=== PATIENT | female | born 1955 | race Caucasian/White ===

== ENCOUNTER 2019-10-10 19:50 | Emergency (ER) | payer BC ==
[2019-10-10] MEDS ORDERED: ceFAZolin 1,000 MG VIAL (IM USE) IM STA (20:17)
[2019-10-10] MEDS ORDERED: IBUPROFEN 600 MG TAB PO STA (20:17)
[2019-10-10] MEDS ORDERED: CIPROFLOXACIN HCL 500 MG TAB PO STA (20:17)
[2019-10-10] MEDS ORDERED: DIPH,PERTUS(ACELL)TETVAC-LF 0.5 ML VIAL IM ONE (20:17)
[2019-10-10] MEDS ORDERED: LIDOCAINE 1% INJ 10MG/ML (20 ML MDV) SQ STA (20:18)
--- NOTE | 2019-10-10 21:17 | XR ---
EXAMINATION TYPE: XR toes RT DATE OF EXAM: 10/10/2019 COMPARISON: None HISTORY: Open laceration TECHNIQUE: 3 view toes right foot FINDINGS: No acute osseous abnormality is evident. Joint spaces appear preserved. There is prior buni onectomy and osteotomy of the first metatarsal. No radiopaque foreign bodies are evident. IMPRESSION: 1. No acute abnormality third digit.
[2019-10-10 21:29] VITALS: PULSE 55; RESP 16
--- NOTE | 2019-10-10 21:33 | ED ---
General Adult HPI - General Chief complaint: Extremity Injury, Lower Stated complaint: R Foot injury Time Seen by Provider: 10/10/19 20:08 Source: patient, family, RN notes reviewed, old records reviewed Mode of arrival: wheelchair Limitations: no limitations - History of Present Illness Initial comments: 63-year-old female patient presents to ED for evaluation of injury to third toe on the right foot. Patient was reportedly walking barefoot in the yard when she stepped on a melani stake causing a laceration. There is reportedly a few bone fragments found by the son-in-law. Patient did not fall to ground. Is denying any other acute injury. Systemic: Pt denies fatigue, fever/chills, rash. Pt denies weakness, night sweats, weight loss. Neuro: Pt denies headache, visual disturbances, syncope or pre-syncope. HEENT: Pt denies ocular discharge or irritation, otalgia, rhinorrhea, pharyngitis or notable lymphadenopathy. Cardiopulmonary: Pt denies chest pain, SOB, heart palpitations, dyspnea on exertion. Abdominal/GI: Pt denies abdominal pain, n/v/d. : Pt denies dysuria, burning w/ urination, frequency/urgency. Denies new onset urinary or bowel incontinence. MSK: Pt denies myalgia, loss of strength or function in extremities. Neuro: Pt denies new onset weakness, paresthesias. - Related Data Home Medications Medication Instructions Recorded Confirmed Thyroid,Pork [Nature-Throid] 48.75 mg PO DAILY 10/10/19 10/10/19 valACYclovir [Valtrex] 500 mg PO BID PRN 10/10/19 10/10/19 Previous Rx's Medication Instructions Recorded Ciprofloxacin HCl [Cipro] 500 mg PO Q12H 7 Days #14 tab 10/10/19 Allergies Allergy/AdvReac Type Severity Reaction Status Date / Time Penicillins Allergy Rash/Hives Verified 10/10/19 21:45 sulfamethoxazole Allergy Rash/Hives Verified 10/10/19 21:45 [From Bactrim] trimethoprim [From Bactrim] Allergy Rash/Hives Verified 10/10/19 21:45 codeine AdvReac Nausea & Verified 10/10/19 21:45 Vomiting Review of Systems ROS Statement: Those systems with pertinent positive or pertinent negative responses have been documented in the HPI. ROS Other: All systems not noted in ROS Statement are negative. Past Medical History Past Medical History: Hypertension History of Any Multi-Drug Resistant Organisms: None Reported Past Surgical History: Bariatric Surgery, Section, Orthopedic Surgery Past Psychological History: No Psychological Hx Reported Smoking Status: Never smoker Past Alcohol Use History: None Reported Past Drug Use History: None Reported General Exam - General Exam Comments Initial Comments: Constitutional: NAD, AOX3, Pt has pleasant affect. HEENT: NC/AT, trachea midline, neck supple, no lymphadenopathy. External ears appear normal, without discharge. Mucous membranes moist. There is no scleral icterus. No pallor noted. Cardiopulmonary: RRR, no murmurs, rubs or gallops, no JVD noted. Lungs CTAB in anterior and posterior enamorado. No peripheral edema. Abdominal exam: Abdomen soft and non-distended. Abdomen non-tender to palpation in all 4 quadrants. Bowel sounds active in LLQ. No hepatosplenomegaly. No ecchymosis Neuro: CN II-XII grossly intact. No nuchal rigidity. No raccon eyes, no kurtz sign, no hemotympanum. No cervical spinal tenderness. MSK: 1.5 cm laceration there and some bone fragments noted. I'm not seeing any exposed tendon. Flexion and extension is intact. Sensation is intact. Capillary refill than 2 seconds. Loosely approximated 2 simple interrupted sutures. Sensation intact in upper and lower extremities. Full active ROM in upper and lower extremities, 5/5 stregnth. Limitations: no limitations Course Vital Signs 10/10/19 10/10/19 10/10/19 19:52 21:15 22:20 Temperature 98.2 F 97.7 F 97.5 F L Pulse Rate 65 55 L 55 L Respiratory 20 16 16 Rate Blood Pressure 149/80 135/75 136/78 O2 Sat by Pulse 97 96 96 Oximetry Procedures - Laceration Laceration #1 Consent Obtained: verbal consent Indication: laceration Site: foot (right toe ) Size (cm): 1 (1.5) Description: linear Depth: simple, single layer (bone involvement) Anesthetic Used: lidocaine 1% Anesthesia Technique: local infiltration Amount (mls): 3 Pre-repair: wound explored, irrigated extensively Type of Sutures: nylon Size of Sutures: 5-0 Number of Sutures: 2 Technique: simple, interrupted Patient Tolerated Procedure: well, no complications Medical Decision Making - Medical Decision Making 63-year-old female patient presents to ED for evaluation of injury to third toe on the right foot. Patient was reportedly walking barefoot in the yard when she stepped on a melani stake causing a laceration. There is reportedly a few bone fragments found by the son-in-law. Patient did not fall to ground. Is denying any other acute injury. Pt VSS, afebrile. Physical exam displayed: 1.5 similar laceration there are a few bone fragments noted. Wound was copiously irrigated. Approximated loosely with 2 simple interrupted sutures. Plain film was read as negative. I did discuss case with on-call orthopedic surgeon Dr. Mares. He recommended patient being placed in splint be nonweightbearing, ciprofloxacin and outpatient follow up tomorrow. Tetanus updated. Case discussed with Dr. Emanuel. Disposition Clinical Impression: Fracture of toe, open Disposition: HOME SELF-CARE Condition: Stable Instructions (If sedation given, give patient instructions): Toe Fracture (ED) Additional Instructions: Continue to wear splint. Follow up with primary care provider orthopedic consult tomorrow. Take antibiotics as directed. Elevate foot. Monitor for signs of infection. Return to ER if condition worsens. Prescriptions: Ciprofloxacin HCl [Cipro] 500 mg PO Q12H 7 Days #14 tab Is patient prescribed a controlled substance at d/c from ED?: No Referrals: Nonstaff,Physician [Primary Care Provider] - 1-2 days Sergey Mares MD [STAFF PHYSICIAN] - 1-2 days
[2019-10-10 22:59] VITALS: BP 136/78; TEMP 97.5
== END 2019-10-10 22:25 | disposition home or self-care (01) ==
LOC: EC 19:50
DX: S92.501A Displaced unspecified fracture of right lesser toe(s), initial encounter for closed fracture (principal); Z88.0 Allergy status to penicillin; Z88.2 Allergy status to sulfonamides; Z88.5 Allergy status to narcotic agent; W22.8XXA Striking against or struck by other objects, initial encounter; Y93.01 Activity, walking, marching and hiking; Y92.096 Garden or yard of other non-institutional residence as the place of occurrence of the external cause
CPT/HCPCS: 73660; 90715; 99284; 90471; 12001; J2001

== ENCOUNTER 2022-01-02 15:21 | Emergency (ER) | payer BC, MEDICARE ==
[2022-01-02 15:59] VITALS: BP 147/74; PULSE 66; RESP 18; TEMP 97.4
[2022-01-02] MEDS ORDERED: KETOROLAC 15 MG/ML 1 ML VIAL IM STA (16:22)
--- NOTE | 2022-01-02 16:56 | ED ---
Upper Extremity HPI - General Chief Complaint: Extremity Injury, Upper Stated Complaint: left wrist injury Time Seen by Provider: 01/02/22 16:16 Source: patient Mode of arrival: ambulatory Limitations: no limitations - History of Present Illness Initial Comments: Patient is a 66-year-old female who presents to the emergency department with a chief complaint of left wrist pain. Patient was on a stool which slipped from under her causing her to fall on her left outstretched hand. Patient reports pain in her left wrist. Denies numbness and tingling. Denies other injury. Has not taken anything for pain. - Related Data Home Medications Medication Instructions Recorded Confirmed Thyroid,Pork [Nature-Throid] 48.75 mg PO DAILY 10/10/19 10/10/19 valACYclovir HCL [Valtrex] 500 mg PO BID PRN 10/10/19 10/10/19 Previous Rx's Medication Instructions Recorded Ciprofloxacin HCl [Cipro] 500 mg PO Q12H 7 Days #14 tab 10/10/19 HYDROcodone/APAP 10-325MG [[place] 1 tab PO Q4HR PRN 3 Days #18 tab 01/02/22 10-325] Ibuprofen [Motrin] 800 mg PO Q6H PRN #30 tab 01/02/22 Allergies Allergy/AdvReac Type Severity Reaction Status Date / Time Penicillins Allergy Rash/Hives Verified 01/02/22 16:00 sulfamethoxazole Allergy Rash/Hives Verified 01/02/22 16:00 [From Bactrim] trimethoprim [From Bactrim] Allergy Rash/Hives Verified 01/02/22 16:00 codeine AdvReac Nausea & Verified 01/02/22 16:00 Vomiting Review of Systems ROS Statement: Those systems with pertinent positive or pertinent negative responses have been documented in the HPI. ROS Other: All systems not noted in ROS Statement are negative. Past Medical History Past Medical History: Hypertension History of Any Multi-Drug Resistant Organisms: None Reported Past Surgical History: Bariatric Surgery, Section, Orthopedic Surgery Past Psychological History: No Psychological Hx Reported Smoking Status: Never smoker Past Alcohol Use History: Occasional Past Drug Use History: None Reported General Exam Limitations: no limitations General appearance: alert, in no apparent distress Head exam: Present: atraumatic, normocephalic, normal inspection Respiratory exam: Present: normal lung sounds bilaterally. Absent: respiratory distress, wheezes, rales, rhonchi, stridor Cardiovascular Exam: Present: regular rate, normal rhythm, normal heart sounds. Absent: systolic murmur, diastolic murmur, rubs, gallop, clicks Extremities exam: Present: other (Deformity and swelling of the radial aspect of left wrist. Tenderness over anterior wrist, both ulnar and radial aspects. No anatomical snuffbox tenderness. Neurovascular intact. Full ROM of digits. Wrist range of motion limited due to pain.) Neurological exam: Present: alert, oriented X3, CN II-XII intact Psychiatric exam: Present: normal affect, normal mood Skin exam: Present: warm, dry, intact, normal color. Absent: rash Course Vital Signs 01/02/22 15:54 Temperature 97.4 F L Pulse Rate 66 Respiratory 18 Rate Blood Pressure 147/74 O2 Sat by Pulse 95 Oximetry Procedures - Orthopedic Fracture Reduction Fracture #1 Side: left Fracture Reduction Location: radius Analgesia: hematoma block Technique: direct manipulation Post Reduction X-rays Demonstrate: acceptable reduction Post-Reduction Neuro Exam: intact Post-Reduction Vascular Exam: intact Splint Applied: Yes Patient Tolerated Procedure: well, no complications Medical Decision Making - Medical Decision Making This is a 66-year-old female presenting with left wrist injury. Neurovascularly intact. Left wrist x-ray obtained and interpreted by me which shows an impacted comminuted transverse fracture of the distal radial metaphysis with angulation. There is a nondisplaced ulnar styloid process fracture. Hematoma block was performed and the fracture reduced. Patient placed in sugar tong splint. Neurovascularly intact on reassessment. Patient placed in sling. Postreduction x-ray shows improve position and alignment of the fragments compared to initial x-ray. Patient will be discharged with Motrin 800. I will also send her home with [place] for severe pain. She'll be referred to relations specialist. Fractured education provided in detail. Dr. Jacobs is my attending. Disposition Clinical Impression: Radial fracture, Ulna fracture, Fall Disposition: HOME SELF-CARE Condition: Good Instructions (If sedation given, give patient instructions): Wrist Fracture in Adults (ED) Additional Instructions: Keep splint clean and dry. Ice injury 4 times a day, 20 minutes each session, especially during the next 1-2 days. Take Motrin and [place] as directed. Next dose of Motrin can be taken 11 PM. Follow-up with relations specialist in the morning. Return to the emergency department if you experience new, concerning, or worsening symptoms. Prescriptions: Ibuprofen [Motrin] 800 mg PO Q6H PRN #30 tab PRN Reason: Pain HYDROcodone/APAP 10-325MG [[place] 10-325] 1 tab PO Q4HR PRN 3 Days #18 tab PRN Reason: Pain Is patient prescribed a controlled substance at d/c from ED?: Yes If prescribed controlled substance>3 days was MAPS reviewed?: Yes Referrals: None,Stated [Primary Care Provider] - 1-2 days Deidra Loera DO [Doctor of Osteopathic Medicine] - 1-2 days
--- NOTE | 2022-01-02 16:59 | XR ---
EXAMINATION TYPE: XR wrist complete LT DATE OF EXAM: 01/02/2022 COMPARISON: NONE HISTORY: Wrist pain TECHNIQUE: 4 views FINDINGS: There is an impacted comminuted transverse fracture distal radial metaphysis. No dislocatio n. There is a nondisplaced ulnar styloid process fracture. The carpal bones are intact. Metacarpals a re intact. IMPRESSION: Acute fractures of distal radius and ulna as above. Mild impaction of the radius fracture .
--- NOTE | 2022-01-02 17:02 | XR ---
EXAMINATION TYPE: XR hand complete LT DATE OF EXAM: 01/02/2022 COMPARISON: NONE HISTORY: Pain TECHNIQUE: 3 views FINDINGS: Carpal bones are intact. Metacarpals are intact. No evidence of fracture of the digits. The re is fractures of distal radius and ulna described in wrist x-ray report. IMPRESSION: No fracture seen of the bones of the hand.
[2022-01-02] MEDS ORDERED: BUPIVACAINE (PF) 0.5% 30 ML VIAL SQ STA (17:18)
[2022-01-02] MEDS ORDERED: LIDOCAINE 1% INJ 10MG/ML (30 ML VIAL-PF) SQ ONE (17:19)
--- NOTE | 2022-01-02 19:46 | XR ---
EXAMINATION TYPE: XR wrist limited LT DATE OF EXAM: 01/02/2022 COMPARISON: NONE HISTORY: Post reduction TECHNIQUE: 2 view FINDINGS: There is impacted comminuted intra-articular transverse fracture of the distal radial metap hysis. There is nondisplaced ulnar styloid process fracture. Carpal bones are intact. There is slight ly improved apposition and alignment of the fragments compared to initial exam. IMPRESSION: There is improved position compared to initial exam.
== END 2022-01-02 20:08 | disposition home or self-care (01) ==
LOC: EC 15:21
DX: S59.292A Other physeal fracture of lower end of radius, left arm, initial encounter for closed fracture (principal); S52.615A Nondisplaced fracture of left ulna styloid process, initial encounter for closed fracture; I10 Essential (primary) hypertension; Z79.899 Other long term (current) drug therapy; Z88.2 Allergy status to sulfonamides; Z88.5 Allergy status to narcotic agent; W11.XXXA Fall on and from ladder, initial encounter
CPT/HCPCS: 25605; 99283; 96372; 73100; 73110; 73130; J1885

== ENCOUNTER → 2022-01-15 | Outpatient (CLI) | payer MEDICARE ==
--- NOTE | 2022-01-15 11:39 | CT ---
EXAMINATION TYPE: CT wrist LT wo con DATE OF EXAM: 01/15/2022 COMPARISON: Radiograph 01/02/2022 HISTORY: 66-year-old female [id number] DISP FX OF LEFT ULNA STYLOID PROCESS, left wrist fx. Preoperativ e planning. TECHNIQUE: Contiguous axial scanning of the left wrist without IV contrast. Coronal and sagittal laila nstructions performed. Radiographic constructions generated on a dedicated independent workstation. CT DLP: 132.70 mGycm Automated exposure control for dose reduction was used. FINDINGS: Overlying fiberglass cast. Redemonstrated comminuted and impacted distal radial metaphyseal and epiphyseal fracture. Prominent c omminution of the articular surface along the dorsal aspect of the radial epiphysis. Fracture involve s Talisha's tubercle as well. There is overall slight dorsal angulation as a result of the impaction. At the level of the radiolunate joint, there is approximately 1.5 mm of articular surface depression and a 2 mm wide articular surface defect. Additional intra-articular fracture extending into the volar aspect of the distal radial ulnar joint. There is a transverse fracture at the base of the ulnar styloid process with minimal 1.5 mm of distra ction.. IMPRESSION: 1. COMMINUTED, IMPACTED, INTRA-ARTICULAR FRACTURE OF THE DISTAL RADIAL METAPHYSIS AND EPIPHYSIS DE TAILED ABOVE. OVERALL SLIGHT DORSAL ANGULATION RESULTS. 2. MINIMALLY DISTRACTED TRANSVERSE FRACTURE THROUGH THE BASE OF THE ULNAR STYLOID PROCESS.
== END | disposition home or self-care (01) ==
LOC: RADCTMAIN 09:22
PROVIDERS: ATTEND Orthopaedic Surgery
DX: Z01.818 Encounter for other preprocedural examination (principal); S52.612A Displaced fracture of left ulna styloid process, initial encounter for closed fracture; S52.572A Other intraarticular fracture of lower end of left radius, initial encounter for closed fracture

== ENCOUNTER → 2022-12-07 | Outpatient (CLI) | payer MEDICARE, OTHER ==
--- NOTE | 2022-12-07 09:58 | US ---
EXAMINATION TYPE: US abdomen complete DATE OF EXAM: 12/07/2022 COMPARISON: NONE CLINICAL INDICATION: Female, 67 years old with history of R10.9 UNSPECIFIED ABDOMINAL PAIN; R59.0; pa in TECHNIQUE: Multiple sonographic images of the abdomen are obtained. FINDINGS: EXAM MEASUREMENTS: Liver Length: 14.6 cm Gallbladder Wall: .2 cm CBD: .8 cm Spleen: 10.9 cm Right Kidney: 10.6 x 3.7 x 3.9 cm Left Kidney: 10.9 x 4.6 x 4.6 cm PROCED TECH NOTES: Pancreas: Tail obscured by overlying bowel gas Liver: wnl Gallbladder: No stones seen Evidence for sonographic Frey's sign: No CBD: Dilated Spleen: wnl Right Kidney: wnl Left Kidney: wnl Upper IVC: wnl Abd Aorta: wnl The liver is homogenous. The intrahepatic portion of the IVC and proximal abdominal aorta are within normal limits. There is no evidence of cholelithiasis. The visualized portions of the pancreas are homogenous. The spleen is unremarkable. Kidneys are symmetric and free of hydronephrosis. No alyce l lesions are seen. IMPRESSION: CBD is mildly dilated
--- NOTE | 2022-12-07 10:02 | US ---
EXAMINATION TYPE: US thyroid st tissue head/neck DATE OF EXAM: 12/07/2022 COMPARISON: EXAMINATION TYPE: US thyroid st tissue head/neck DATE OF EXAM: 12/07/2022 COMPARISON: NONE CLINICAL INDICATION: Female, 67 years old with history of R10.9 UNSPECIFIED ABDOMINAL PAIN; R59.0; ly mph node right side TECHNIQUE: FINDINGS: Hypoechoic area seen .7 x .4 cm. IMPRESSION: Normal-appearing lymph node is noted at the site of clinical concern right neck.
== END | disposition home or self-care (01) ==
LOC: RADUSWWP 08:55
PROVIDERS: ATTEND Internal Medicine
DX: R59.0 Localized enlarged lymph nodes (principal)
CPT/HCPCS: 76536; 76700